=== PATIENT | female | born 1960 | race Caucasian/White ===

== ENCOUNTER 2017-02-27 07:28 | Inpatient (IN) ==
[2017-02-27] MEDS ORDERED: SALINE FLUSH 10ml SYRINGE IVF PRN (07:43)
[2017-02-27] MEDS ORDERED: NS 1,000 ML IV ONE (07:43)
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
--- NOTE | 2017-02-27 08:42 | XRay Report ---
Indication: H/o TIA PROCEDURE: XR chest 1V: Encounter: Initial Comparison: None FINDINGS: The lungs are clear. There is no abnormal airspace opacity, pleural effusion or pneumothorax identified. The heart size, pulmonary vasculature and mediastinum are within normal limits. No significant skeletal abnormality is seen. IMPRESSION: No acute cardiopulmonary abnormality. .
[2017-02-27] MEDS ORDERED: PROCHLORPERAZINE 10 MG/2 ML INJECTION IVP ONE (08:48)
[2017-02-27] MEDS ORDERED: DiphenhydrAMINE 50 MG/ML INJECTION IVP ONE (08:48)
[2017-02-27] MEDS ORDERED: KETOROLAC 30 MG/ML INJECTION IVP ONE (08:49)
--- NOTE | 2017-02-27 08:59 | CT Scan Report ---
Indication: H/o TIAs PROCEDURE: CT head/brain wo con: Encounter: Initial Comparison: None Technique: Axial CT images through the head were performed without contrast. Iterative Reconstruction dose reducing technique was utilized. FINDINGS: The ventricles are of normal size, shape, and contour for the patient's age. The brainstem, cerebellum, and cerebral hemispheres have a normal morphology and CT attenuation. There is no evidence of midline displacement. No hemorrhage, signs of acute territorial stroke, mass effect, mass lesions, or edema is evident. The visualized portions of the skull base, midface, and calvarium demonstrate no abnormality. The paranasal sinuses are well aerated and free of significant disease. The tympanic and mastoid cavities appear normal. IMPRESSION: No acute intracranial abnormality or hemorrhage. There is a preliminary report by [facility]. .
[2017-02-27] MEDS ORDERED: HALOPERIDOL 5 MG/ML INJECTION IM PRN (12:31)
[2017-02-27] MEDS ORDERED: HALOPERIDOL 0.5 MG TABLET PO PRN (12:31)
[2017-02-27] MEDS ORDERED: LORazepam 0.5 MG TABLET PO PRN (12:31)
[2017-02-27 14:16] VITALS: RESP 16
[2017-02-27 14:51] VITALS: BMI 22.8
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
[2017-02-28 07:29] VITALS: BP 135/73; PULSE 74; TEMP 97; O2SAT 97
[2017-02-28] MEDS ORDERED: FLUTICASONE NASAL SPRAY 50mcg EA NOSTRIL SCH (09:00)
[2017-02-28] MEDS ORDERED: ASPIRIN 81 MG CHEWABLE TABLET PO SCH (09:00)
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
== END 2017-02-28 15:55 | disposition home or self-care (01) | DRG 885 ==
LOC: ED 07:28 → GEN 12:44
PROVIDERS: ADMIT Psychiatry & Neurology Psychiatry; ATTEND Psychiatry & Neurology Psychiatry